=== PATIENT | female | born 1945 | race Caucasian/White ===

== ENCOUNTER → 2019-04-17 | Outpatient (CLI) | payer MEDICARE, OTHER ==
[~2019-04-17] MED LIST: Barium Sulfate w/v 2.1% Oral Susp 450 ML Bottle PO ONE; Iopamidol 612 MG/ML 75 ML Bottle IVPUSH ONE
[2019-04-17 15:33] LABS: ANION GAP 14.2; CHLORIDE,CL 100 mmol/L (101-111); SODIUM,NA 138 mmol/L (135-145)
== END ==
LOC: DL.CLIN 10:00
PROVIDERS: ATTEND Nurse Practitioner
DX: M25.551 Pain in right hip (principal); R10.31 Right lower quadrant pain
CPT/HCPCS: 36415; 80053; 85025; 99213; Q9967

== ENCOUNTER 2019-12-04 06:58 | Emergency (ER) | payer MEDICARE, OTHER ==
--- NOTE | 2019-12-04 07:34 | EDM.PDOC ---
<Rico Carmona - Last Filed: 12/04/19 07:38> ED HPI GENERAL MEDICAL PROBLEM - General Chief Complaint: Lower Extremity Injury/Pain Stated Complaint: AMBULANCE Time Seen by Provider: 12/04/19 07:38 Source of Information: Reports: Patient, Family, RN, RN Notes Reviewed History Limitations: Reports: No Limitations - History of Present Illness INITIAL COMMENTS - FREE TEXT/NARRATIVE: hip surgury on Monday, home on Monday, now having pain, states like the muscles have been overworked, but they haven' been, states above the right knee and to the side, right leg is worse than the left leg, was having 10/10 pain, given fentyl 50 mcg by EMS, now states no pain. She also had her left hip worked on the same day to strengthen the joint but she is not sure what surgical intervention was performed. There is substantial erythema surrounding the surgical site on the right hip and the area is warm to the touch. Onset: Today Duration: Hour(s): Location: Reports: Lower Extremity, Right (Right hip) Quality: Reports: Ache, Burning Severity: Moderate Improves with: Reports: Medication (Fentanyl relieved pain) Worsens with: Reports: Movement Associated Symptoms: Denies: Confusion, Chest Pain, Cough, Fever/Chills, Headaches, Nausea/Vomiting, Shortness of Breath, Syncope - Related Data Allergies Allergy/AdvReac Type Severity Reaction Status Date / Time No Known Allergies Allergy Verified 12/04/19 06:59 Home Meds: Home Meds FLUoxetine [PROzac] 40 mg PO BID 10/16/16 [History] Triamterene/Hydrochlorothiazid [Triamterene-HCTZ 37.5-25 MG] 1 tab PO DAILY [History] Celecoxib 400 mg PO DAILY 08/03/18 [History] Levothyroxine 25 mcg PO ACBREAKFAST 08/03/18 [History] Aspirin [Ecotrin EC] 325 mg PO ASDIRECTED PRN 05/06/19 [History] Albuterol [Proventil] 1 inh PO ASDIRECTED PRN 05/08/19 [History] Review of Systems - Review of Systems Review Of Systems: See Below Constitutional: Reports: No Symptoms Respiratory: Denies: Shortness of Breath, Wheezing, Cough, Sputum Cardiovascular: Denies: Chest Pain, Edema, Lightheadedness, Palpitations, Syncope GI/Abdominal: Denies: Abdominal Pain, Constipation, Decreased Appetite, Diarrhea , Nausea, Vomiting Genitourinary: Reports: No Symptoms Musculoskeletal: Reports: Leg Pain (bilateral hips, radiation to right lateral thigh), Joint Pain (bilateral hips), Muscle Stiffness (bilateral hips) Skin: Reports: Erythema (surrounding surgical site of right hip). Denies: Cyanosis, Jaundice, Diaphoresis, Dryness, Lesions Neurological: Denies: Confusion, Dizziness, Headache, Syncope Psychiatric: Denies: Confusion, Anxiety, Agitation ED EXAM, GENERAL - Physical Exam Exam: See Below Exam Limited By: No Limitations General Appearance: Alert, WD/WN, No Apparent Distress Respiratory/Chest: No Respiratory Distress, Lungs Clear, Normal Breath Sounds, No Accessory Muscle Use, Chest Non-Tender Cardiovascular: Normal Peripheral Pulses, Regular Rate, Rhythm, No Edema, No Gallop, No JVD, No Murmur, No Rub Peripheral Pulses: 2+: Femoral (L), Femoral (R), Posterior Tibial (L), Posterior Tibial (R), Dorsalis Pedis (L), Dorsalis Pedis (R) GI/Abdominal: Normal Bowel Sounds, Soft, Non-Tender, No Organomegaly, No Distention, No Abnormal Bruit, No Mass (Female) Exam: Deferred Rectal (Female) Exam: Deferred Back Exam: Normal Inspection, Full Range of Motion, NT Extremities: Leg Pain, Limited Range of Motion, Increased Warmth (surgical site of right hip), Redness (surgical site of right hip) Neurological: Alert, Oriented, CN II-XII Intact, Normal Cognition, Normal Gait, Normal Reflexes, No Motor/Sensory Deficits Psychiatric: Normal Affect, Normal Mood Skin Exam: Erythema (surgical site of right hip), Increased Warmth (surgical site of right hip). No: Diaphoretic, Ecchymosis, Jaundice Lymphatic: No Adenopathy Course - Vital Signs Last Recorded V/S: Last Vital Signs Temp 98 F 12/04/19 07:10 Pulse 77 12/04/19 07:10 Resp 16 12/04/19 07:10 BP 120/53 L 12/04/19 07:10 Pulse Ox 94 L 12/04/19 07:10 - Orders/Labs/Meds Labs: Laboratory Tests 02/05/20 02/05/20 02/05/20 Range/Units 07:40 07:40 07:40 WBC 9.5 (5.0-10.0) 10^3/uL RBC 3.02 L (4.2-5.4) 10^6/uL Hgb 9.4 L D (12.0-16.0) g/dL Hct 28.6 L (37.0-47.0) % MCV 94.7 (80-100) fL MCH 31.1 (27.0-34.0) pg MCHC 32.9 L (33.0-35.0) g/dL Plt Count 210 D (150-450) 10^3/uL Neut % (Auto) 68.4 (42.2-75.2) % Lymph % (Auto) 19.1 L (20.5-50.1) % [place] % (Auto) 8.5 H (2-8) % Eos % (Auto) 3.6 H (1.0-3.0) % Baso % (Auto) 0.4 (0.0-1.0) % Sodium 134 L (135-145) mmol/L Potassium 3.7 (3.6-5.0) mmol/L Chloride 99 L (101-111) mmol/L Carbon Dioxide 27.0 (21.0-31.0) mmol/L Anion Gap 11.7 BUN 18 (7-18) mg/dL Creatinine 0.7 (0.6-1.3) mg/dL Est Cr Clr Drug Dosing 55.31 mL/min Estimated GFR (MDRD) > 60 BUN/Creatinine Ratio 25.71 Glucose 91 (74-105) mg/dL Lactic Acid 0.6 (0.5-2.0) mmol/L Calcium 8.5 (8.4-10.2) mg/dl Total Bilirubin 0.5 (0.2-1.0) mg/dL AST 43 H (10-42) IU/L ALT 18 (10-60) IU/L Alkaline Phosphatase 53 (42-121) IU/L Total Protein 5.9 L (6.7-8.2) g/dl Albumin 3.1 L (3.2-5.5) g/dl Globulin 2.8 Albumin/Globulin Ratio 1.11 Departure - Departure Disposition: DC/Tfer to [facility] Clinical Impression: Postoperative pain of extremity - Discharge Information Forms: ED Department Discharge, Interfacility Transfer EMTALA Sepsis Event Note - Focused Exam Vital Signs: Vital Signs Temp Pulse Resp BP Pulse Ox 12/04/19 07:10 98 F 77 16 120/53 L 94 L Date Exam was Performed: 12/04/19 Time Exam was Performed: 07:38 <Coco Bartonian - Last Filed: 12/04/19 08:47> ED HPI GENERAL MEDICAL PROBLEM - History of Present Illness INITIAL COMMENTS - FREE TEXT/NARRATIVE: Pt arrives from home by ambulance on POD #2 s/p Rt THR and left hip stabilization surgery by Dr. Reddy at [facility] in . Pt states she came home by car yesterday and had pain and numbness in her legs and had difficulty getting into the house. Once in the house she went to bed and has been unable to get up from the bed. Denies fever, loss of bowel or bladder control, or bleeding from the surgical incisions. Past Medical History HEENT History: Reports: Impaired Vision, Other (See Below) Other HEENT History: UPPER DENTURE. chronic sinus problems Cardiovascular History: Reports: Hypertension, Other (See Below) Other Cardiovascular History: states high cholesterol in past. Stopped meds. Not sure if she still has or not. Respiratory History: Reports: None Gastrointestinal History: Reports: Chronic Constipation Genitourinary History: Reports: Urinary Incontinence [employer] History: Reports: , Other (See Below) Other [employer] History: 2 children, vaginal deliveries Musculoskeletal History: Reports: Back Pain, Chronic, Osteoarthritis, RA, Other (See Below) Other Musculoskeletal History: right shoulder fx with surgery. surgery to left knee. Neurological History: Reports: None Psychiatric History: Reports: Depression Endocrine/Metabolic History: Reports: Hypothyroidism, Osteoporosis, Other (See Below) Other Endocrine/Metabolic History: on thyroid med in past. "tested out borderline diabetes in past but never had" Hematologic History: Reports: None Immunologic History: Reports: None Oncologic (Cancer) History: Reports: None Dermatologic History: Reports: None - Infectious Disease History Infectious Disease History: Reports: Chicken Pox, Measles, Mumps - Past Surgical History Head Surgeries/Procedures: Reports: None HEENT Surgical History: Reports: LASIK, Oral Surgery Other HEENT Surgeries/Procedures: left eye only. Still needing to wear glasses. Cardiovascular Surgical History: Reports: None GI Surgical History: Reports: Appendectomy, Colonoscopy Female Surgical History: Reports: Tubal Ligation Endocrine Surgical History: Reports: None Musculoskeletal Surgical History: Reports: Hip Replacement, Shoulder Replacement , Other (See Below) Other Musculoskeletal Surgeries/Procedures:: LEFT TOTAL HIP REPLACEMENT, HARDWARE IN PLACE. TOTAL REVERSE REPLACEMENT RIGHT SHOULDER, HARDWARE IN PLACE Dermatological Surgical History: Reports: None Social & Family History - Family History Family Medical History: Noncontributory - Tobacco Use Smoking Status *Q: Never Smoker Second Hand Smoke Exposure: No - Caffeine Use Caffeine Use: Reports: Coffee Other Caffeine Use: TAKES VIVARIN PILLS OCCASIONALLY - Recreational Drug Use Recreational Drug Use: No - Living Situation & Occupation Living situation: Reports: , with Spouse Occupation: Retired Course - Orders/Labs/Meds Labs: Laboratory Tests 12/04/19 12/04/19 12/04/19 Range/Units 07:40 07:40 07:40 WBC 9.5 (5.0-10.0) 10^3/uL RBC 3.02 L (4.2-5.4) 10^6/uL Hgb 9.4 L D (12.0-16.0) g/dL Hct 28.6 L (37.0-47.0) % MCV 94.7 (80-100) fL MCH 31.1 (27.0-34.0) pg MCHC 32.9 L (33.0-35.0) g/dL Plt Count 210 D (150-450) 10^3/uL Neut % (Auto) 68.4 (42.2-75.2) % Lymph % (Auto) 19.1 L (20.5-50.1) % [place] % (Auto) 8.5 H (2-8) % Eos % (Auto) 3.6 H (1.0-3.0) % Baso % (Auto) 0.4 (0.0-1.0) % Sodium 134 L (135-145) mmol/L Potassium 3.7 (3.6-5.0) mmol/L Chloride 99 L (101-111) mmol/L Carbon Dioxide 27.0 (21.0-31.0) mmol/L Anion Gap 11.7 BUN 18 (7-18) mg/dL Creatinine 0.7 (0.6-1.3) mg/dL Est Cr Clr Drug Dosing 55.31 mL/min Estimated GFR (MDRD) > 60 BUN/Creatinine Ratio 25.71 Glucose 91 (74-105) mg/dL Lactic Acid 0.6 (0.5-2.0) mmol/L Calcium 8.5 (8.4-10.2) mg/dl Total Bilirubin 0.5 (0.2-1.0) mg/dL AST 43 H (10-42) IU/L ALT 18 (10-60) IU/L Alkaline Phosphatase 53 (42-121) IU/L Total Protein 5.9 L (6.7-8.2) g/dl Albumin 3.1 L (3.2-5.5) g/dl Globulin 2.8 Albumin/Globulin Ratio 1.11 - Radiology Interpretation Free Text/Narrative:: [facility] Final Radiology Report Call: [phone] assistance Online chat: [email or web address] Name: ORAL BOYLE Age: 74Years F Date: 12/04/2019 SSN: -- : 1945 Study: XR SPINE LUMBOSACRAL 2 OR 3 VIEWS Requesting Physician: COCO BARTON Images: 3 Addl Studies: Provided Clinical History: Contrast: Contrast Medium: Contrast Amount: Contrast Method: Page 1 of 2 PROCEDURE INFORMATION: Exam: XR Lumbosacral Spine, 2 or 3 Views Exam date and time: 12/04/2019 7:44 AM Age: 74 years old Clinical indication: Other: Bilat hip pain, leg weakness, RT total hip replacement 12/02/19, no new injury; Prior surgery; Surgery date: 3-7 days post-operative TECHNIQUE: Imaging protocol: XR of the lumbosacral spine, 2 or 3 views. COMPARISON: MR Lumbar Spine Comp wo Cont 04/11/2019 10:08 AM FINDINGS: Vertebrae: There is generalized osteopenia. The vertebral body heights are maintained. No fractures. There is hypertrophy and degeneration of the facet joints. Mild scoliotic curvature. Normal alignment, otherwise. There is moderate narrowing of the T12-L1 disc space. There is mild narrowing of the L4-L5 disc space. There is moderately severe narrowing of the L5-S1 disc space.There are associated marginal endplate osteophytes. Soft tissues: Unremarkable. IMPRESSION: 1. No fractures or dislocations. 2. Degenerative disc disease. 3. Facet joint arthropathy. Thank you for allowing us to participate in the care of your patient. Dictated and Authenticated by: Sheng Irby MD [facility] Final Radiology Report Call: [phone] assistance Online chat: [email or web address] Experience Name: ORAL BOYLE Age: 74Years F Date: 12/04/2019 SSN: -- : 1945 Study: XR HIP 2 VIEW INCL AP PELVIS BILAT Requesting Physician: COCO BARTON Images: 5 Addl Studies: Provided Clinical History: Contrast: Contrast Medium: Contrast Amount: Contrast Method: CONFIDENTIALITY STATEMENT This report is intended only for use by the referring physician, and only in accordance with law. If you received this in error, call [phone]. Page 1 of 1 PROCEDURE INFORMATION: Exam: XR Bilateral Hips with Pelvis when Performed Exam date and time: 12/04/2019 7:34 AM Age: 74 years old Clinical indication: Other: Bilat hip pain, leg weakness, RT total hip replacement 12/02/19; Prior surgery; Surgery date: 3-7 days post-operative; Surgery type: Total hip replacement (rt) TECHNIQUE: Imaging protocol: XR bilateral hips with pelvis when performed. Views: 2 views. COMPARISON: CR Hip Min 1V w Pelvis Lt 10/16/2016 12:36 PM FINDINGS: Bones/joints: Since the prior study a total hip arthroplasty has been placed. There is no evidence of loosening or infection of the hardware. There is also a new right hip arthroplasty with the prosthetic components in anatomic alignment. Soft tissues: There are skin clips over the right hip. IMPRESSION: Bilateral hip arthroplasties in anatomic alignment. Thank you for allowing us to participate in the care of your patient. Dictated and Authenticated by: Sheng Irby MD 12/04/2019 8:01 AM Central Time ([place] & [place]) - Re-Assessments/Exams Free Text/Narrative Re-Assessment/Exam: 12/04/19 08:30 I personally performed or re-performed the physical examination and medical decision making. I have verified all student documentation or findings, including history, physical exam and/or medical decision making. Free Text/Narrative Re-Assessment/Exam: 12/04/19 08:45 Plan to transfer the pt back to [facility] for evaluation and PT/OT or consideration of some form of rehab or transitional care. Departure - Departure Time of Disposition: 08:45 Condition: Fair - Discharge Information *PRESCRIPTION DRUG MONITORING PROGRAM REVIEWED*: Not Applicable *COPY OF PRESCRIPTION DRUG MONITORING REPORT IN PATIENT POLO: Not Applicable Sepsis Event Note - Evaluation Sepsis Screening Result: No Definite Risk - Focused Exam Date Exam was Performed: 12/04/19 Time Exam was Performed: 08:41
[2019-12-04 08:07] LABS: ANION GAP 11.7; CHLORIDE,CL 99 mmol/L (101-111); SODIUM,NA 134 mmol/L (135-145)
[2019-12-04 08:44] VITALS: BP 128/50; PULSE 80
== END 2019-12-04 09:21 ==
LOC: DL.ED 06:58
DX: G89.18 Other acute postprocedural pain (principal); M25.552 Pain in left hip; M25.551 Pain in right hip; M79.651 Pain in right thigh; Z79.82 Long term (current) use of aspirin
CPT/HCPCS: 36415; 72100; 80053; 83605; 85025; 99285-25

== ENCOUNTER 2020-04-14 05:29 | Day surgery (SDC) | payer MEDICARE, OTHER ==
[2020-04-14] MEDS ORDERED: Midazolam 1 MG/ML 2 ML SDV IV ONE ×3 (05:30→06:29)
[2020-04-14] MEDS ORDERED: fentaNYL 100 MCG/2 ML SDV IV ONE ×3 (05:30→06:27)
[2020-04-14] MEDS ORDERED: Dextrose 5%-0.45% NaCl 1,000 ML IV SCH (06:05)
[2020-04-14] MEDS ORDERED: fentaNYL 100 MCG/2 ML SDV ONE (06:09)
[2020-04-14] MEDS ORDERED: Midazolam 1 MG/ML 2 ML SDV ONE (06:09)
--- NOTE | 2020-04-14 08:41 | OR ---
DATE: 04/14/2020 PROCEDURE: Esophagogastroduodenoscopy, NBI, and multiple pinch biopsies. INSTRUMENT USED: GIF-HQ190 Olympus video panendoscope. PREMEDICATIONS: No oral or topical anesthesia used. Fentanyl 100 mcg intravenous, Versed 1.5 mg intravenous. Nasal O2 cannula. The procedure was done under pulse oximetry, BP recording, and vp emerging media. INDICATION: The patient with persistent nausea as well as dyspepsia, unexplained and not responsive to medical measures. Esophagogastroduodenoscopy is performed for detection of any active erosive lesions, Ordoñez esophagus and/or malignancy also under consideration, H. pylori status to be determined, small bowel biopsies to be obtained for celiac disease if indicated, endoscopic hemostasis therapy if needed. PROCEDURE IN DETAIL: The scope was passed with ease. Adequate visualization of the esophagus was made from proximal to distal areas. No upper esophageal lesions identified. No distal esophageal stricture. No uphill or downhill esophageal varices. No Lilian-Coy tear. No evidence of erosive esophagitis by Grimstead criteria. No esophageal polyp or tumor mass identified. Z-line was seen at around 39 cm distal to the oral verge, configuration consistent with grade 1 by ZAP classification. There was whitish pseudomembrane kind of exudate noted in the esophagus, NBI views were obtained, multiple pinch biopsies were obtained and sent for histopathology. [place] biopsy was taken and sent for fundus smear and culture. No proximal gastric varices noted. Gastric fundus examination by retroflexion showed no polypoid lesions. No gastric ulcer, malignant mass, or vascular ectasia identified. Scattered gastric antral erosions were noted without bleeding from them. Multiple pinch biopsies were taken from the gastric antrum and proximal body and sent for PyloriTek test for H. pylori and histopathology. Duodenal bulb showed no ulcer. Visualized 2nd part of the duodenum was unremarkable. Multiple pinch biopsies, 4 in number were taken from different areas of the 2nd part of the duodenum, and the tissues were also obtained from 9 and 4 o'clock positions of the duodenal bulb and sent for any histopathologic evidence of celiac disease. No bleeding was noted from any of the visualized areas at the completion of examination. Photographs were taken of the duodenal bulb, gastric antrum, fundus, and distal esophagus. IMPRESSION: Gastric antral erosions. The patient tolerated the procedure well. [facility] /[id number]
[2020-04-14 11:43] VITALS: PULSE 57
[2020-04-14 11:44] VITALS: BP 124/49
== END 2020-04-14 10:27 | disposition home or self-care (01) ==
LOC: DL.ENDO 05:29
PROVIDERS: ATTEND Internal Medicine Gastroenterology
DX: K29.80 Duodenitis without bleeding (principal); K25.9 Gastric ulcer, unspecified as acute or chronic, without hemorrhage or perforation; I10 Essential (primary) hypertension; E78.5 Hyperlipidemia, unspecified; E03.9 Hypothyroidism, unspecified; F32.9 Major depressive disorder, single episode, unspecified; M19.90 Unspecified osteoarthritis, unspecified site; Z90.49 Acquired absence of other specified parts of digestive tract; Z98.890 Other specified postprocedural states; Z98.51 Tubal ligation status
CPT/HCPCS: 43239; 87077; 87102; 87205; J2250; J3010; J7042; 87107; 88305

== ENCOUNTER 2020-04-28 05:29 | Day surgery (SDC) | payer MEDICARE, OTHER ==
[2020-04-28] MEDS ORDERED: fentaNYL 100 MCG/2 ML SDV IV ONE ×3 (05:30→06:34)
[2020-04-28] MEDS ORDERED: Midazolam 1 MG/ML 2 ML SDV IV ONE ×7 (05:30→06:49)
[2020-04-28] MEDS ORDERED: Dextrose 5%-0.45% NaCl 1,000 ML IV SCH (06:00)
[2020-04-28] MEDS ORDERED: Midazolam 1 MG/ML 2 ML SDV ONE (06:12)
[2020-04-28] MEDS ORDERED: fentaNYL 100 MCG/2 ML SDV ONE (06:12)
[2020-04-28 09:14] VITALS: PULSE 63
[2020-04-28 09:17] VITALS: BP 123/66
--- NOTE | 2020-04-28 12:19 | OR ---
DATE: 04/28/2020 PROCEDURE: Total colonoscopy. INSTRUMENT USED: PCF-H190DL Olympus video colonoscope. PREMEDICATIONS: Fentanyl 100 mcg intravenous, Versed 4 mg intravenous, nasal O2 cannula. The procedure was done under pulse oximetry, BP recording, and conveyor monitor. INDICATION: The patient with progressive constipation, unexplained, and not responsive to medical measures. Colonoscopic examination is done for detection of any polypoid lesions and removal, endoscopic hemostasis therapy if needed. DESCRIPTION OF PROCEDURE: Initial rectal exam was unremarkable. Rigid anoscopy was normal. The colonoscope was passed with ease. Scattered diverticula were noted in the distal left colon along with deformity. Diffuse pigmentation was noted, consistent with melanosis coli. The scope was passed with ease up to the ileocecal area. Photographs were taken of the normal-appearing cecum, identified by double-bulged ileocecal folds. There was some amount of solid material that had to be aspirated. No bleeding was noted from any of the visualized areas at the commencement of the examination. No stricture. No vascular ectasia. No large isolated ulcerations seen. No evidence of diffuse inflammatory bowel disease in the form of friability, contact bleeding, or ulcerations. No polyp or tumor mass identified. Probing the proximal sides of folds and flexures using adequate distention and clearing up the stool material, withdrawal of the scope was made, cecum to rectum time over 6 minutes. Bowel preparation was one of [place] scale 2 in all the regions, total score 6. No bleeding was noted from any of the visualized areas at the completion of examination. IMPRESSION: 1. Melanosis coli. 2. Diverticulosis. The patient tolerated the procedure well. [facility] /[id number]
== END 2020-04-28 09:05 | disposition home or self-care (01) ==
LOC: DL.ENDO 05:29
PROVIDERS: ATTEND Internal Medicine Gastroenterology
DX: K63.89 Other specified diseases of intestine (principal); K57.30 Diverticulosis of large intestine without perforation or abscess without bleeding; K25.9 Gastric ulcer, unspecified as acute or chronic, without hemorrhage or perforation; F32.9 Major depressive disorder, single episode, unspecified; I10 Essential (primary) hypertension; E03.9 Hypothyroidism, unspecified; M19.90 Unspecified osteoarthritis, unspecified site
CPT/HCPCS: 45378; J2250; J3010; J7042; G0121

== ENCOUNTER 2020-12-16 09:40 | Day surgery (SDC) | payer MEDICARE, OTHER ==
[2020-12-16] MEDS ORDERED: Sodium Chloride 0.9% 10 ML Syringe IV ONE (09:41)
[2020-12-16] MEDS ORDERED: Midazolam 1 MG/ML 2 ML SDV IV ONE (09:41)
[2020-12-16] MEDS ORDERED: Dexamethasone 4 MG/ML SDV IV ONE (09:41)
[2020-12-16] MEDS ORDERED: Phenylephrine 10% Ophth Soln 5 ML Bot EYELF PRN (09:45)
[2020-12-16] MEDS ORDERED: Timolol Maleate 0.5% Ophth Soln 5 ML Bottle EYELF ONE (09:45)
[2020-12-16] MEDS ORDERED: Cataract Ophth Solution EYELF ONE (09:45)
[2020-12-16] MEDS ORDERED: Moxifloxacin 0.5% Ophth Soln 3 ML Bottle EYELF ONE (09:45)
[2020-12-16] MEDS ORDERED: Povidone-Iodine 5% Sterile Ophth Soln 30 ML Bottle EYELF ONE ×2 (09:45→10:38)
[2020-12-16] MEDS ORDERED: Ondansetron 4 MG/2 ML SDV IVPUSH PRN (09:45)
[2020-12-16] MEDS ORDERED: Phenylephrine 10% Ophth Soln 5 ML Bot EYELF ONE (09:45)
[2020-12-16] MEDS ORDERED: Proparacaine 0.5% Ophth Soln 15 ML Bottle EYELF ONE (09:45)
[2020-12-16] MEDS ORDERED: Tropicamide 1% Ophth Soln 15 ML Bottle EYELF ONE (09:45)
[2020-12-16] MEDS ORDERED: Sodium Chloride 0.9% 10 ML Syringe FLUSH PRN (09:45)
[2020-12-16] MEDS ORDERED: Acetaminophen 325 MG Tab PO PRN (09:45)
[2020-12-16 10:02] VITALS: BP 149/71; PULSE 75
[2020-12-16] MEDS ORDERED: Lidocaine 1% 30 ML SDV ONE (10:37)
[2020-12-16] MEDS ORDERED: Apraclonidine 0.5% Ophth Soln 5 ML Bot EYELF ONE (10:38)
[2020-12-16] MEDS ORDERED: Tetracaine HCl/PF 0.5% 4 ML Bottle EYELF ONE (10:38)
[2020-12-16] MEDS ORDERED: Diclofenac Sodium 0.1% Ophth Soln 5 ML Bottle EYELF ONE (10:38)
[2020-12-16] MEDS ORDERED: Dexamethasone/Neomycin/Polymyxin B Ophth Oint 3.5 GM Tube EYELF ONE (10:39)
[2020-12-16] MEDS ORDERED: Chondroitin Sulfate/Hyaluronate Sodium Ophth Inj 0.75 ML Syringe EYELF ONE (10:39)
[2020-12-16] MEDS ORDERED: Balanced Salt Solution Ophth Irrig 500 ML Bottle IOCULAR ONE (10:39)
[2020-12-16] MEDS ORDERED: Vancomycin 500 MG SDV EYELF ONE (10:39)
--- NOTE | 2020-12-16 13:04 | OR ---
DATE: 12/16/2020 PREOPERATIVE DIAGNOSIS: Visually significant mixed cataract, left eye. POSTOPERATIVE DIAGNOSIS: Visually significant mixed cataract, left eye. PROCEDURE: Extracapsular cataract extraction with intraocular lens implant, left eye. ANESTHESIA: Topical/local MAC. COMPLICATIONS: None. INDICATION: Ms. Vogel was seen in the clinic with complaints of blurred vision. The examination revealed visually significant mixed cataract. She is unhappy with her vision. She saw her regular saw offbearer, Dr. Lafleur. Dr. Lafleur was not able to improve her vision with change in glasses. She complains of blurred vision at all ranges, difficulty seeing at distance, difficulty seeing fine print. She does have a history of LASIK, but functions for the most part with glasses. I explained options and offered cataract surgery. Explained risks including the potential for infection, retinal detachment, loss of vision, need for additional surgery, and risks associated with anesthesia. We discussed implant options. She has requested a monofocal implant. She understands that she may need glasses following surgery. I also explained the reduced refractive predictability given her history of LASIK. OPERATIVE DESCRIPTION: After informed consent was obtained and the risks, benefits, and alternatives were explained, the patient was brought to the operative suite and topical anesthesia was administered. The patient was then prepped and draped in the sterile fashion and attention was placed on the left eye. A sterile lid speculum was placed into the left eye to allow operative exposure. A full-thickness paracentesis was made in the temporal portion of the operative eye. Preservative-free lidocaine 0.1 mL was injected into the anterior chamber followed by viscoelastic. A full-thickness corneal incision was then made into the anterior chamber. A bent needle cystotome was used to create a small ambika in the anterior capsule. The capsulorrhexis forceps was then used to create a 360-degree curvilinear capsulorrhexis. The nucleus was then removed using a phacoemulsification handpiece and the remaining cortical material was then removed with irrigation and aspiration handpiece. Following removal of the cortical material, the capsular bag was then inspected and noted to be free of any holes or tears. Viscoelastic was then injected into the capsular bag and the intraocular lens was inserted into the capsular bag. The viscoelastic material was then removed from both the anterior and posterior chambers and from behind the IOL. The lens and capsular bag were then reinspected. The IOL was well centered and the capsular bag intact. The wound and paracentesis sites were inspected and hydrated with balanced saline solution. Both were found to be self- sealing. The intraocular pressure was assessed digitally and found to be within normal range. A good red reflex was noted at the completion of the procedure. No complications occurred during the operation. At the completion of the procedure, Maxitrol, Voltaren, and Iopidine drops were placed into the operative eye. A sterile eye shield was placed over the operative eye and the patient was transported to the postoperative recovery area having tolerated the procedure well. Postoperative instructions were given along with a postoperative appointment. The patient was advised to call with any questions or concerns. [facility] /[id number]
== END 2020-12-16 11:47 | disposition home or self-care (01) ==
LOC: DL.SDS 09:40
PROVIDERS: ATTEND Ophthalmology
DX: H26.8 Other specified cataract (principal); E78.5 Hyperlipidemia, unspecified; E03.9 Hypothyroidism, unspecified; I10 Essential (primary) hypertension; J45.909 Unspecified asthma, uncomplicated; Z87.891 Personal history of nicotine dependence; Z98.890 Other specified postprocedural states; Z79.899 Other long term (current) drug therapy; Z88.8 Allergy status to other drugs, medicaments and biological substances; Z79.890 Hormone replacement therapy
CPT/HCPCS: 00142; 66984; A9270; J1100; J2250; J3370; V2632

== ENCOUNTER 2020-12-23 09:51 | Day surgery (SDC) | payer MEDICARE, OTHER ==
[~2020-12-23 09:51] MED LIST changes: +Acetaminophen 325 MG Tab PO PRN; -Barium Sulfate w/v 2.1% Oral Susp 450 ML Bottle PO ONE; +Cataract Ophth Solution EYERT ONE; -Iopamidol 612 MG/ML 75 ML Bottle IVPUSH ONE; +Moxifloxacin 0.5% Ophth Soln 3 ML Bottle EYERT ONE; +Ondansetron 4 MG/2 ML SDV IVPUSH PRN; +Phenylephrine 10% Ophth Soln 5 ML Bot EYERT ONE; +Phenylephrine 10% Ophth Soln 5 ML Bot EYERT PRN; +Povidone-Iodine 5% Sterile Ophth Soln 30 ML Bottle EYERT ONE; +Proparacaine 0.5% Ophth Soln 15 ML Bottle EYERT ONE; +Timolol Maleate 0.5% Ophth Soln 5 ML Bottle EYERT ONE; +Tropicamide 1% Ophth Soln 15 ML Bottle EYERT ONE
[2020-12-23] MEDS ORDERED: Midazolam 1 MG/ML 2 ML SDV IV ONE (09:52)
[2020-12-23] MEDS ORDERED: Dexamethasone 4 MG/ML SDV IV ONE (09:52)
[2020-12-23] MEDS ORDERED: Sodium Chloride 0.9% 10 ML Syringe IV ONE (09:52)
[2020-12-23] MEDS ORDERED: Tetracaine HCl/PF 0.5% 4 ML Bottle EYERT ONE (10:44)
[2020-12-23] MEDS ORDERED: Povidone-Iodine 5% Sterile Ophth Soln 30 ML Bottle EYERT ONE (10:45)
[2020-12-23] MEDS ORDERED: Diclofenac Sodium 0.1% Ophth Soln 5 ML Bottle EYERT ONE (10:46)
[2020-12-23] MEDS ORDERED: Dexamethasone/Neomycin/Polymyxin B Ophth Oint 3.5 GM Tube EYERT ONE (10:46)
[2020-12-23] MEDS ORDERED: Apraclonidine 0.5% Ophth Soln 5 ML Bot EYERT ONE (10:46)
[2020-12-23] MEDS ORDERED: Lidocaine 1% 30 ML SDV ONE (10:47)
[2020-12-23] MEDS ORDERED: Balanced Salt Solution Ophth Irrig 500 ML Bottle IOCULAR ONE (10:47)
[2020-12-23] MEDS ORDERED: Vancomycin 500 MG SDV ONE (10:47)
[2020-12-23] MEDS ORDERED: Chondroitin Sulfate/Hyaluronate Sodium Ophth Inj 0.75 ML Syringe EYERT ONE (10:48)
--- NOTE | 2020-12-23 13:03 | OR ---
DATE: 12/23/2020 PREOPERATIVE DIAGNOSIS: Visually significant mixed cataract, right eye. POSTOPERATIVE DIAGNOSIS: Visually significant mixed cataract, right eye. PROCEDURE: Extracapsular cataract extraction with intraocular lens implant, right eye. ANESTHESIA: Topical/local MAC. COMPLICATIONS: None. INDICATION: Mrs. Vogel was seen in the clinic. Examination revealed visually significant mixed cataract. She is symptomatic with a slow progressive change in vision over the last year. She saw her regular provider, Dr. Lafleur. Dr. Lafleur was not able to meet her visual needs with the change in glasses. I explained options and offered cataract surgery. I explained risks including, but not limited to infection, retinal detachment, loss of vision, need for additional surgery, and risks associated with anesthesia. We discussed implant options. She has requested a monofocal implant. She does have a history of LASIK and I explained the refractive predictability has decreased following that procedure. She understands that she may be dependent on glasses following surgery for some activities. She voiced understanding with respect to risks, limitations, and wished to proceed. OPERATIVE DESCRIPTION: After informed consent was obtained and the risks, benefits, and alternatives were explained, the patient was brought to the operative suite and topical anesthesia was administered. The patient was then prepped and draped in the sterile fashion and attention was placed on the right eye. A sterile lid speculum was placed into the right eye to allow operative exposure. A full-thickness paracentesis was made in the temporal portion of the operative eye. Preservative-free lidocaine 0.1 mL was injected into the anterior chamber followed by viscoelastic. A full-thickness corneal incision was then made into the anterior chamber. A bent needle cystotome was used to create a small ambika in the anterior capsule. The capsulorrhexis forceps was then used to create a 360-degree curvilinear capsulorrhexis. The nucleus was then removed using a phacoemulsification handpiece and the remaining cortical material was then removed with irrigation and aspiration handpiece. Following removal of the cortical material, the capsular bag was then inspected and noted to be free of any holes or tears. Viscoelastic was then injected into the capsular bag and the intraocular lens was inserted into the capsular bag. The viscoelastic material was then removed from both the anterior and posterior chambers and from behind the IOL. The lens and capsular bag were then reinspected. The IOL was well centered and the capsular bag intact. The wound and paracentesis sites were inspected and hydrated with balanced saline solution. Both were found to be self- sealing. The intraocular pressure was assessed digitally and found to be within normal range. A good red reflex was noted at the completion of the procedure. No complications occurred during the operation. At the completion of the procedure, Maxitrol, Voltaren, and Iopidine drops were placed into the operative eye. A sterile eye shield was placed over the operative eye and the patient was transported to the postoperative recovery area having tolerated the procedure well. Postoperative instructions were given along with a postoperative appointment. The patient was advised to call with any questions or concerns. [facility] /[id number]
[2020-12-24 07:54] VITALS: BP 132/62; PULSE 69
== END 2020-12-23 11:24 | disposition home or self-care (01) ==
LOC: DL.SDS 09:51
PROVIDERS: ATTEND Ophthalmology
DX: H26.8 Other specified cataract (principal); J45.909 Unspecified asthma, uncomplicated; J32.9 Chronic sinusitis, unspecified; E78.5 Hyperlipidemia, unspecified; I10 Essential (primary) hypertension; E03.9 Hypothyroidism, unspecified; M19.91 Primary osteoarthritis, unspecified site; Z88.8 Allergy status to other drugs, medicaments and biological substances; Z87.891 Personal history of nicotine dependence; Z98.890 Other specified postprocedural states; Z79.890 Hormone replacement therapy; Z79.899 Other long term (current) drug therapy
CPT/HCPCS: 66984; A9270; J1100; J2250; J3370; V2632; 00142

== ENCOUNTER 2022-10-10 11:07 | Emergency (ER) | payer MEDICARE, OTHER ==
[2022-10-10] MEDS ORDERED: Propofol 200 MG/20 ML SDV IV ONE (11:08)
[2022-10-10] MEDS ORDERED: fentaNYL 100 MCG/2 ML SDV IV ONE (11:08)
[2022-10-10 11:16] VITALS: BP 97/58; PULSE 74
[2022-10-10] MEDS ORDERED: fentaNYL 100 MCG/2 ML SDV ONE (13:23)
== END 2022-10-10 15:07 | disposition home or self-care (01) ==
LOC: DL.ED 11:07
DX: T84.021A Dislocation of internal left hip prosthesis, initial encounter (principal); E78.00 Pure hypercholesterolemia, unspecified; I10 Essential (primary) hypertension; E78.5 Hyperlipidemia, unspecified; Z88.8 Allergy status to other drugs, medicaments and biological substances; Z79.899 Other long term (current) drug therapy
CPT/HCPCS: 27265; 73501; 73502; 99152; 99153; 99283; J2704; J3010

== ENCOUNTER 2022-12-31 10:34 | Emergency (ER) | payer MEDICARE, OTHER ==
[2022-12-31 11:48] VITALS: BP 154/140; PULSE 91
== END 2022-12-31 12:38 | disposition home or self-care (01) ==
LOC: DL.ED 10:34
DX: H10.023 Other mucopurulent conjunctivitis, bilateral (principal); I10 Essential (primary) hypertension; J45.909 Unspecified asthma, uncomplicated; E03.9 Hypothyroidism, unspecified; Z88.8 Allergy status to other drugs, medicaments and biological substances; Z79.899 Other long term (current) drug therapy
CPT/HCPCS: 99283

== ENCOUNTER 2023-08-17 11:35 | Emergency (ER) | payer MEDICARE, OTHER ==
[2023-08-17] MEDS ORDERED: Sodium Chloride 0.9% 10 ML Syringe FLUSH PRN (11:41)
[2023-08-17 11:52] LABS: BASOPHILS PERCENT AUTO 0.4 % (0.0-1.0); HEMATOCRIT 39.9 % (37.0-47.0); HEMOGLOBIN 13.3 g/dL (12.0-16.0); LYMPHOCYTES PERCENT AUTO 32.7 % (20.5-50.1); MEAN CORPUSCULAR HEMOGLOBIN 28.1 pg (27.0-34.0); MEAN CORPUSCULAR HGB CONC 33.3 g/dL (33.0-35.0); MEAN CORPUSCULAR VOLUME 84.2 fL (80-100); MONOCYTES PERCENT AUTO 7.1 % (2-8); NEUTROPHILS PERCENT AUTO 57.8 % (42.2-75.2); PLATELET COUNT,PLT 299 10^3/uL (150-450); RED BLOOD CELL COUNT 4.74 10^6/uL (4.2-5.4); WHITE BLOOD CELL COUNT,WBC 7.9 10^3/uL (5.0-10.0)
[2023-08-17] MEDS ORDERED: Sodium Chloride 0.9% 500 ML IV SCH (12:00)
[2023-08-17 12:14] LABS: ALBUMIN 4.4 g/dL (3.4-5.0); ANION GAP 21.3 mEq/L (7-13); BILIRUBIN TOTAL 0.6 mg/dL (0.2-1.0); CALCIUM 9.6 mg/dL (8.5-10.1); CREATININE 2.39 mg/dL (0.55-1.02); EST CRCL DRUG DOSING (CG) 14.34 mL/min; POTASSIUM,K 4.3 mmol/L (3.5-5.1); PROTEIN TOTAL,TP 8.6 g/dL (6.4-8.2)
[2023-08-17 14:10] LABS: BILIRUBIN,URINE NEGATIVE (NEGATIVE); COLOR,URINE YELLOW (YELLOW); GLUCOSE,URINE NEGATIVE (NEGATIVE); KETONES,URINE 15 (NEGATIVE); LEUKOCYTE ESTERASE,URINE SMALL (NEGATIVE); NITRITE,URINE POSITIVE (NEGATIVE); OCCULT BLOOD,URINE TRACE-INTACT (NEGATIVE); PH,URINE 5.5 (5.0-9.0); PROTEIN,URINE NEGATIVE (NEGATIVE); UROBILINOGEN,URINE 0.2 mg/dL (0.2-1.0)
[2023-08-17 14:18] LABS: APPEARANCE,URINE SLIGHTLY CLOUDY (CLEAR)
[2023-08-17 14:20] LABS: BACTERIA,URINE MANY /HPF (0-FEW/HPF); EPITHELIAL CELLS,URINE FEW /HPF (NOT SEEN); RBC,URINE 0-5 /HPF (0-5); WBC,URINE 20-30 /HPF (0-5/HPF)
[2023-08-17] MEDS ORDERED: cefTRIAXone 1 GM Vial IVPUSH ONE (14:29)
[2023-08-17] MEDS ORDERED: Sodium Chloride 0.9% 1,000 ML IV SCH (15:00)
[2023-08-17 16:22] VITALS: BP 98/58; PULSE 87
== END 2023-08-17 17:47 ==
LOC: DL.ED 11:35
DX: N17.9 Acute kidney failure, unspecified (principal); N30.00 Acute cystitis without hematuria; R79.89 Other specified abnormal findings of blood chemistry; E78.00 Pure hypercholesterolemia, unspecified; K21.9 Gastro-esophageal reflux disease without esophagitis; J45.909 Unspecified asthma, uncomplicated; E03.9 Hypothyroidism, unspecified; Z79.899 Other long term (current) drug therapy; Z88.8 Allergy status to other drugs, medicaments and biological substances
CPT/HCPCS: 36415; 74176; 76705; 80053; 81001; 85025; 87086; 87088; 87186; 96361; 96374; 99285; J0696; J7040; J3490

== ENCOUNTER 2023-08-25 11:04 | Emergency (ER) | payer MEDICARE, OTHER ==
[2023-08-25 11:27] VITALS: BP 111/82; PULSE 99
[2023-08-25] MEDS ORDERED: Lactulose Soln 10 GM/15 ML 30 ML UD Cup PO ONE (11:55)
== END 2023-08-25 12:07 | disposition home or self-care (01) ==
LOC: DL.ED 11:04
DX: K59.00 Constipation, unspecified (principal); E78.5 Hyperlipidemia, unspecified; E03.9 Hypothyroidism, unspecified; I10 Essential (primary) hypertension; Z88.8 Allergy status to other drugs, medicaments and biological substances; Z79.899 Other long term (current) drug therapy
CPT/HCPCS: 74018; 99283; 99284; A9270-GY

== ENCOUNTER 2024-08-27 14:29 | Emergency (ER) | payer SELFPAY ==
[~2024-08-27 14:29] MED LIST changes: -Acetaminophen 325 MG Tab PO PRN; -Cataract Ophth Solution EYERT ONE; -Moxifloxacin 0.5% Ophth Soln 3 ML Bottle EYERT ONE; -Ondansetron 4 MG/2 ML SDV IVPUSH PRN; -Phenylephrine 10% Ophth Soln 5 ML Bot EYERT ONE; -Phenylephrine 10% Ophth Soln 5 ML Bot EYERT PRN; -Povidone-Iodine 5% Sterile Ophth Soln 30 ML Bottle EYERT ONE; -Proparacaine 0.5% Ophth Soln 15 ML Bottle EYERT ONE; +Sodium Chloride 0.9% 10 ML Syringe FLUSH PRN; -Timolol Maleate 0.5% Ophth Soln 5 ML Bottle EYERT ONE; -Tropicamide 1% Ophth Soln 15 ML Bottle EYERT ONE
[2024-08-27 14:32] LABS: BASOPHILS PERCENT AUTO 0.1 % (0.0-1.0); EOSINOPHILS PERCENT AUTO 0.1 % (1.0-3.0); LYMPHOCYTES PERCENT AUTO 12.2 % (20.5-50.1); MEAN CORPUSCULAR HEMOGLOBIN 27.8 pg (27.0-34.0); MEAN CORPUSCULAR HGB CONC 32.4 g/dL (33.0-35.0); MEAN CORPUSCULAR VOLUME 86.1 fL (80-100); MONOCYTES PERCENT AUTO 4.6 % (2-8); PLATELET COUNT,PLT 187 10^3/uL (150-450); RED BLOOD CELL COUNT 3.95 10^6/uL (4.2-5.4); WHITE BLOOD CELL COUNT,WBC 8.5 10^3/uL (5.0-10.0)
[2024-08-27] MEDS: HYDROmorphone 0.5 MG/0.5 ML Syringe IVPUSH ONE (14:34)
[2024-08-27] MEDS: Ondansetron 4 MG/2 ML SDV IVPUSH ONE (14:35)
[2024-08-27 14:47] LABS: INR 1.2 (0.9-1.2); PROTHROMBIN TIME 11.9 SEC (9.0-12.0)
[2024-08-27 14:51] LABS: A/G RATIO 0.92; ALBUMIN 3.3 g/dL (3.4-5.0); ANION GAP 14.2 mEq/L (7-13); BILIRUBIN TOTAL 1.2 mg/dL (0.2-1.0); BUN/CREATININE RATIO 13.3 (No establ ref range); C-REACTIVE PROTEIN 2.31 ng/dL (<=0.50); CALCIUM 9.5 mg/dL (8.5-10.1); CREATININE 0.9 mg/dL (0.55-1.02); EST CRCL DRUG DOSING (CG) 38.87 mL/min; MAGNESIUM 1.4 mg/dL (1.8-2.4); POTASSIUM,K 3.2 mmol/L (3.5-5.1); PROTEIN TOTAL,TP 6.9 g/dL (6.4-8.2)
[2024-08-27 14:55] LABS: LACTIC ACID 1.6 mmol/L (0.4-2.0)
[2024-08-27] MEDS: Iopamidol 612 MG/ML 100 ML Bottle IVPUSH ONE (14:58)
[2024-08-27] MEDS: Sodium Chloride 0.9% 1,000 ML IV SCH (15:11)
[2024-08-27] MEDS: Potassium Chloride 20 MEQ in Premix Bag 1 BAG IV ONE (15:11)
[2024-08-27] MEDS: Magnesium Sulfate/Water Premix 2 GM in Premix Bag 1 BAG IV ONE (15:12)
[2024-08-27 15:57] VITALS: BP 136/70; PULSE 77
== END 2024-08-27 17:45 ==
LOC: EDSEX → MERGE 14:29 → DL.ED 14:29
DX: I85.10 Secondary esophageal varices without bleeding (principal); R18.8 Other ascites; E83.42 Hypomagnesemia; E87.6 Hypokalemia
CPT/HCPCS: 36415; 74177; 80053; 82272; 83605; 83735; 85025; 85610; 86140; 96365; 96366; 96368; 96375; 99285; 99285-25; J1171; J2405; J3475; J3480; J7030; Q9967

== ENCOUNTER 2024-09-07 19:27 | Observation (INO) | payer MEDICARE, OTHER ==
[2024-09-07] MEDS ORDERED: Sodium Chloride 0.9% 10 ML Syringe FLUSH PRN (20:15)
[2024-09-07 20:55] LABS: BASOPHILS PERCENT AUTO 0.6 % (0.0-1.0); EOSINOPHILS PERCENT AUTO 0.6 % (1.0-3.0); HEMATOCRIT 34.6 % (37.0-47.0); HEMOGLOBIN 11.6 g/dL (12.0-16.0); LYMPHOCYTES PERCENT AUTO 18.2 % (20.5-50.1); MEAN CORPUSCULAR HEMOGLOBIN 28.3 pg (27.0-34.0); MEAN CORPUSCULAR HGB CONC 33.5 g/dL (33.0-35.0); MEAN CORPUSCULAR VOLUME 84.4 fL (80-100); MONOCYTES PERCENT AUTO 7.2 % (2-8); NEUTROPHILS PERCENT AUTO 73.4 % (42.2-75.2); PLATELET COUNT,PLT 219 10^3/uL (150-450); WHITE BLOOD CELL COUNT,WBC 7.1 10^3/uL (5.0-10.0)
[2024-09-07 21:08] LABS: APPEARANCE,URINE SLIGHTLY CLOUDY (CLEAR); BILIRUBIN,URINE NEGATIVE (NEGATIVE); COLOR,URINE YELLOW (YELLOW); GLUCOSE,URINE NEGATIVE (NEGATIVE); KETONES,URINE 15 (NEGATIVE); LEUKOCYTE ESTERASE,URINE NEGATIVE (NEGATIVE); NITRITE,URINE POSITIVE (NEGATIVE); OCCULT BLOOD,URINE TRACE-INTACT (NEGATIVE); PH,URINE 6.5 (5.0-9.0); PROTEIN,URINE 30 (NEGATIVE)
[2024-09-07 21:15] LABS: INR 1.2 (0.9-1.2); PROTHROMBIN TIME 12.3 SEC (9.0-12.0); PTT,PARTIAL THROMBOPLSTIN TIME 26.3 SEC (22.0-34.0)
[2024-09-07 21:27] LABS: ALBUMIN 3.7 g/dL (3.4-5.0); ANION GAP 18.6 mEq/L (7-13); BILIRUBIN TOTAL 1.1 mg/dL (0.2-1.0); BUN/CREATININE RATIO 18.1 (No establ ref range); CALCIUM 9.7 mg/dL (8.5-10.1); CREATININE 1.05 mg/dL (0.55-1.02); EST CRCL DRUG DOSING (CG) 33.32 mL/min; MAGNESIUM 1.4 mg/dL (1.8-2.4); POTASSIUM,K 2.6 mmol/L (3.5-5.1); PROTEIN TOTAL,TP 7.5 g/dL (6.4-8.2); TSH ULTRASENSITIVE 10.52 uIU/mL (0.36-3.74)
[2024-09-07 21:37] LABS: BACTERIA,URINE MANY /HPF (0-FEW/HPF); EPITHELIAL CELLS,URINE FEW /HPF (NOT SEEN); RBC,URINE 0-5 /HPF (0-5); WBC,URINE 0-5 /HPF (0-5/HPF)
[2024-09-07] MEDS: Magnesium Sulfate/Water Premix 2 GM in Premix Bag 1 BAG IV ONE (21:41)
[2024-09-07] MEDS: Potassium Chloride 10 MEQ Tab.ER PO ONE (21:42)
[2024-09-07] MEDS: Ondansetron 4 MG/2 ML SDV IVPUSH ONE (22:00)
[2024-09-07] MEDS: Melatonin 3 MG Tab PO PRN (22:00)
[2024-09-07] MEDS: Ciprofloxacin 500 MG Tab PO ONE (22:00)
[2024-09-08] MEDS ORDERED: hydrALAZINE 20 MG/ML SDV IVPUSH PRN (00:08)
[2024-09-08] MEDS: Ondansetron 4 MG/2 ML SDV IVPUSH PRN (00:55)
[2024-09-08] MEDS: Sodium Chloride 0.9% 1,000 ML IV SCH (00:59)
[2024-09-08] MEDS: diphenhydrAMINE 25 MG Tab PO ONE (02:47)
[2024-09-08] MEDS ORDERED: Potassium Chloride 10 MEQ Tab.ER PO ONE (11:02)
[2024-09-08 11:22] VITALS: BP 151/75; PULSE 77
[2024-09-08 11:36] LABS: ANION GAP 15.7 mEq/L (7-13); CALCIUM 9.1 mg/dL (8.5-10.1); CREATININE 0.93 mg/dL (0.55-1.02); EST CRCL DRUG DOSING (CG) 35.41 mL/min; POTASSIUM,K 3.7 mmol/L (3.5-5.1)
[2024-09-08] MEDS ORDERED: Ciprofloxacin 500 MG Tab ONE (11:52)
[2024-09-08] MEDS ORDERED: Ciprofloxacin 500 MG Tab PO ONE (12:24)
== END 2024-09-08 12:25 | disposition home or self-care (01) ==
LOC: DL.ED 19:27 → DL.MS 22:14
PROVIDERS: ADMIT Internal Medicine; ATTEND Internal Medicine
DX: N30.01 Acute cystitis with hematuria (principal); E87.6 Hypokalemia; E83.42 Hypomagnesemia; I10 Essential (primary) hypertension; E03.9 Hypothyroidism, unspecified; E78.2 Mixed hyperlipidemia; J45.909 Unspecified asthma, uncomplicated; F32.A Depression, unspecified; K21.9 Gastro-esophageal reflux disease without esophagitis; Z79.890 Hormone replacement therapy; Z79.899 Other long term (current) drug therapy
CPT/HCPCS: 36415; 80048; 80053; 81001; 82140; 83605; 83690; 83735; 84443; 85025; 85610; 85730; 87086; 96365; 96375; 96376; 99222; 99239; 99285; A9270; G0378; J2405; J3475; J7030; 87088; 87186

== ENCOUNTER 2024-09-11 11:19 | Observation (INO) | payer MEDICARE, OTHER ==
[2024-09-11] MEDS ORDERED: Sodium Chloride 0.9% 10 ML Syringe FLUSH PRN (11:35)
[2024-09-11 11:52] LABS: BASOPHILS PERCENT AUTO 0.5 % (0.0-1.0); HEMATOCRIT 31.9 % (37.0-47.0); HEMOGLOBIN 10.6 g/dL (12.0-16.0); LYMPHOCYTES PERCENT AUTO 19.8 % (20.5-50.1); MEAN CORPUSCULAR HEMOGLOBIN 28.8 pg (27.0-34.0); MEAN CORPUSCULAR HGB CONC 33.2 g/dL (33.0-35.0); MEAN CORPUSCULAR VOLUME 86.7 fL (80-100); MONOCYTES PERCENT AUTO 7.1 % (2-8); NEUTROPHILS PERCENT AUTO 71.6 % (42.2-75.2); PLATELET COUNT,PLT 194 10^3/uL (150-450); RED BLOOD CELL COUNT 3.68 10^6/uL (4.2-5.4); WHITE BLOOD CELL COUNT,WBC 8.7 10^3/uL (5.0-10.0)
[2024-09-11 12:12] LABS: ALBUMIN 3.6 g/dL (3.4-5.0); BILIRUBIN TOTAL 1.1 mg/dL (0.2-1.0); C-REACTIVE PROTEIN 3.42 ng/dL (<=0.50); CALCIUM 10.6 mg/dL (8.5-10.1); CREATININE 1.62 mg/dL (0.55-1.02); EST CRCL DRUG DOSING (CG) 19.8 mL/min; MAGNESIUM 1.6 mg/dL (1.8-2.4); PROTEIN TOTAL,TP 7.1 g/dL (6.4-8.2)
[2024-09-11] MEDS: Ondansetron 4 MG/2 ML SDV IVPUSH ONE (12:14)
[2024-09-11] MEDS: Ketorolac 30 MG/ML SDV IVPUSH ONE (12:14)
[2024-09-11 12:15] LABS: LACTIC ACID 1.6 mmol/L (0.4-2.0)
[2024-09-11 12:15] LABS: APPEARANCE,URINE CLEAR (CLEAR); BILIRUBIN,URINE NEGATIVE (NEGATIVE); COLOR,URINE YELLOW (YELLOW); GLUCOSE,URINE NEGATIVE (NEGATIVE); KETONES,URINE NEGATIVE (NEGATIVE); LEUKOCYTE ESTERASE,URINE NEGATIVE (NEGATIVE); NITRITE,URINE NEGATIVE (NEGATIVE); OCCULT BLOOD,URINE NEGATIVE (NEGATIVE); PROTEIN,URINE NEGATIVE (NEGATIVE); UROBILINOGEN,URINE 0.2 mg/dL (0.2-1.0)
[2024-09-11] MEDS: Sodium Chloride 0.9% 1,000 ML IV ONE (12:34)
[2024-09-11] MEDS ORDERED: Acetaminophen 325 MG Tab PO PRN (14:19)
[2024-09-11] MEDS ORDERED: Docusate Sodium 100 MG Cap PO PRN (14:19)
[2024-09-11] MEDS: Potassium Chloride 10 MEQ Tab.ER PO ONE (15:13)
[2024-09-11] MEDS: Magnesium Sulfate/Water Premix 2 GM in Premix Bag 1 BAG IV ONE (15:13)
[2024-09-11] MEDS: Lactulose Soln 10 GM/15 ML 30 ML UD Cup PO ONE (15:13)
[2024-09-11] MEDS: Sodium Chloride 0.9% 1,000 ML IV SCH (15:17)
[2024-09-11] MEDS: Heparin Sodium 5,000 Units/ML Vial SUBCUT SCH (21:35)
[2024-09-12 05:26] LABS: BASOPHILS PERCENT AUTO 0.5 % (0.0-1.0); EOSINOPHILS PERCENT AUTO 3.8 % (1.0-3.0); HEMATOCRIT 29.5 % (37.0-47.0); HEMOGLOBIN 9.5 g/dL (12.0-16.0); LYMPHOCYTES PERCENT AUTO 26.9 % (20.5-50.1); MEAN CORPUSCULAR HEMOGLOBIN 28.4 pg (27.0-34.0); MEAN CORPUSCULAR HGB CONC 32.2 g/dL (33.0-35.0); MEAN CORPUSCULAR VOLUME 88.3 fL (80-100); MONOCYTES PERCENT AUTO 7.8 % (2-8); PLATELET COUNT,PLT 159 10^3/uL (150-450); RED BLOOD CELL COUNT 3.34 10^6/uL (4.2-5.4); WHITE BLOOD CELL COUNT,WBC 8.3 10^3/uL (5.0-10.0)
[2024-09-12 05:43] LABS: ANION GAP 15.5 mEq/L (7-13); CALCIUM 9.1 mg/dL (8.5-10.1); CREATININE 1.19 mg/dL (0.55-1.02); EST CRCL DRUG DOSING (CG) 29.21 mL/min; POTASSIUM,K 3.5 mmol/L (3.5-5.1)
[2024-09-12] MEDS: Ondansetron 4 MG/2 ML SDV IVPUSH PRN (09:37)
[2024-09-12 12:11] VITALS: BP 136/62; PULSE 76
== END 2024-09-12 15:00 | disposition home or self-care (01) ==
LOC: DL.ED 11:19 → DL.MS 13:31
PROVIDERS: ADMIT Internal Medicine; ATTEND Internal Medicine
DX: N17.9 Acute kidney failure, unspecified (principal); I10 Essential (primary) hypertension; E78.00 Pure hypercholesterolemia, unspecified; K21.9 Gastro-esophageal reflux disease without esophagitis; E03.9 Hypothyroidism, unspecified; Z79.899 Other long term (current) drug therapy
CPT/HCPCS: 36415; 74176; 80048; 80053; 81003; 82140; 83605; 83690; 83735; 85025; 86140; 87428; 96361; 96374; 96375; 97161; 97165; 99222; 99239; 99285; A9270; J1644; J1885; J2405; J3475; J7030; 96365; 96366; 96372; 96376; G0378

== ENCOUNTER 2024-12-10 05:36 | Day surgery (SDC) | payer MEDICARE, OTHER ==
[2024-12-10] MEDS: Sodium Chloride 0.9% 500 ML IV SCH (06:01)
[2024-12-10] MEDS ORDERED: fentaNYL 100 MCG/2 ML SDV ONE (06:13)
[2024-12-10] MEDS ORDERED: Midazolam 1 MG/ML 2 ML SDV ONE (06:13)
[2024-12-10] MEDS ORDERED: Midazolam 1 MG/ML 2 ML SDV IV ONE (06:13)
[2024-12-10] MEDS ORDERED: fentaNYL 100 MCG/2 ML SDV IV ONE (06:13)
[2024-12-10] MEDS: fentaNYL 100 MCG/2 ML SDV IV ONE (06:25)
[2024-12-10] MEDS: Midazolam 1 MG/ML 2 ML SDV IV ONE (06:26)
[2024-12-10 08:03] VITALS: BP 125/59; PULSE 85
== END 2024-12-10 08:25 | disposition home or self-care (01) ==
LOC: DL.ENDO 05:36
PROVIDERS: ATTEND Internal Medicine Gastroenterology
DX: K31.89 Other diseases of stomach and duodenum (principal); K76.9 Liver disease, unspecified
CPT/HCPCS: 43239; J2250; J3010; J7040; 88305

== ENCOUNTER 2025-01-03 13:07 | Emergency (ER) | payer MEDICARE, OTHER ==
[2025-01-03] MEDS ORDERED: Sodium Chloride 0.9% 10 ML Syringe FLUSH PRN (13:22)
[2025-01-03 13:36] LABS: BASOPHILS PERCENT AUTO 0.6 % (0.0-1.0); EOSINOPHILS PERCENT AUTO 5.6 % (1.0-3.0); HEMATOCRIT 28.3 % (37.0-47.0); HEMOGLOBIN 8.4 g/dL (12.0-16.0); LYMPHOCYTES PERCENT AUTO 22.5 % (20.5-50.1); MEAN CORPUSCULAR HEMOGLOBIN 25.4 pg (27.0-34.0); MEAN CORPUSCULAR HGB CONC 29.7 g/dL (33.0-35.0); MEAN CORPUSCULAR VOLUME 85.5 fL (80-100); NEUTROPHILS PERCENT AUTO 62.3 % (42.2-75.2); PLATELET COUNT,PLT 210 10^3/uL (150-450); RED BLOOD CELL COUNT 3.31 10^6/uL (4.2-5.4); WHITE BLOOD CELL COUNT,WBC 8.9 10^3/uL (5.0-10.0)
[2025-01-03 13:58] LABS: ALANINE AMINOTRANSFERASE,ALT 52 U/L (14-59); ALBUMIN 3.1 g/dL (3.4-5.0); ALKALINE PHOSPHATASE 124 U/L (46-116); ANION GAP 17.5 mEq/L (7-13); ASPARTATE AMNIOTRANSFERASE,AST 90 U/L (15-37); BILIRUBIN TOTAL 0.9 mg/dL (0.2-1.0); BLOOD UREA NITROGEN,BUN 16 mg/dL (7-18); BUN/CREATININE RATIO 12.9 (No establ ref range); C-REACTIVE PROTEIN 2.65 ng/dL (<=0.50); CARBON DIOXIDE,CO2 22 mmol/L (21-32); CHLORIDE,CL 107 mmol/L (98-107); CREATININE 1.24 mg/dL (0.55-1.02); GLUCOSE RANDOM 172 mg/dL (70-99); MAGNESIUM 1.8 mg/dL (1.8-2.4); POTASSIUM,K 3.5 mmol/L (3.5-5.1); PROTEIN TOTAL,TP 6.9 g/dL (6.4-8.2); SODIUM,NA 143 mmol/L (136-145)
[2025-01-03 13:59] LABS: A/G RATIO 0.82; ESTIMATED GFR 45 mL/min (>=60)
[2025-01-03 14:02] LABS: INR 1.2 (0.9-1.2); PROTHROMBIN TIME 12.3 SEC (9.0-12.0)
[2025-01-03 14:18] LABS: PERCENT FE SATURATION 6.4 % (20.0-50.0)
[2025-01-03 14:20] LABS: LACTIC ACID 4.1 mmol/L (0.4-2.0)
[2025-01-03] MEDS: ferumoxytoL 1,020 MG in Sodium Chloride 0.9% 100 ML IV ONE (15:54)
[2025-01-03 16:13] VITALS: BP 155/62; PULSE 87
== END 2025-01-03 17:03 | disposition home or self-care (01) ==
LOC: DL.ED 13:07
DX: K74.60 Unspecified cirrhosis of liver (principal); R18.8 Other ascites; D50.9 Iron deficiency anemia, unspecified; I10 Essential (primary) hypertension; E78.00 Pure hypercholesterolemia, unspecified; J45.909 Unspecified asthma, uncomplicated; K21.9 Gastro-esophageal reflux disease without esophagitis; E03.9 Hypothyroidism, unspecified; Z96.649 Presence of unspecified artificial hip joint; Z88.8 Allergy status to other drugs, medicaments and biological substances; Z79.890 Hormone replacement therapy; Z79.899 Other long term (current) drug therapy
CPT/HCPCS: 36415; 80053; 82728; 83540; 83550; 83605; 83735; 85025; 85610; 86140; 96365; 99284; Q0138; 99283

== ENCOUNTER 2025-01-06 15:36 | Emergency (ER) | payer MEDICARE, OTHER ==
[2025-01-06 18:04] LABS: BASOPHILS PERCENT AUTO 0.7 % (0.0-1.0); EOSINOPHILS PERCENT AUTO 5.9 % (1.0-3.0); HEMATOCRIT 30.8 % (37.0-47.0); HEMOGLOBIN 9.4 g/dL (12.0-16.0); LYMPHOCYTES PERCENT AUTO 23.2 % (20.5-50.1); MEAN CORPUSCULAR HGB CONC 30.5 g/dL (33.0-35.0); MEAN CORPUSCULAR VOLUME 85.3 fL (80-100); MONOCYTES PERCENT AUTO 7.5 % (2-8); NEUTROPHILS PERCENT AUTO 62.7 % (42.2-75.2); PLATELET COUNT,PLT 218 10^3/uL (150-450); RED BLOOD CELL COUNT 3.61 10^6/uL (4.2-5.4); WHITE BLOOD CELL COUNT,WBC 10.9 10^3/uL (5.0-10.0)
[2025-01-06 18:26] LABS: A/G RATIO 0.79; ALANINE AMINOTRANSFERASE,ALT 60 U/L (14-59); ALBUMIN 3.1 g/dL (3.4-5.0); ALKALINE PHOSPHATASE 120 U/L (46-116); ANION GAP 17.6 mEq/L (7-13); ASPARTATE AMNIOTRANSFERASE,AST 118 U/L (15-37); BLOOD UREA NITROGEN,BUN 16 mg/dL (7-18); BUN/CREATININE RATIO 15.2 (No establ ref range); CALCIUM 9.3 mg/dL (8.5-10.1); CARBON DIOXIDE,CO2 23 mmol/L (21-32); CHLORIDE,CL 106 mmol/L (98-107); CREATININE 1.05 mg/dL (0.55-1.02); ESTIMATED GFR 54 mL/min (>=60); GLUCOSE RANDOM 96 mg/dL (70-99); MAGNESIUM 1.9 mg/dL (1.8-2.4); POTASSIUM,K 3.6 mmol/L (3.5-5.1); SODIUM,NA 143 mmol/L (136-145)
[2025-01-06 18:29] LABS: LACTIC ACID 1.1 mmol/L (0.4-2.0)
[2025-01-06 18:51] LABS: INR 1.2 (0.9-1.2); PROTHROMBIN TIME 12.2 SEC (9.0-12.0); PTT,PARTIAL THROMBOPLSTIN TIME 26.7 SEC (22.0-34.0)
[2025-01-06] MEDS: Spironolactone 25 MG Tab PO ONE (21:14)
[2025-01-06] MEDS: Furosemide 20 MG Tab PO ONE (21:14)
[2025-01-06 23:37] VITALS: BP 146/64; PULSE 88
== END 2025-01-06 21:30 ==
LOC: DL.ED 15:36
DX: R18.8 Other ascites (principal); I10 Essential (primary) hypertension; K21.9 Gastro-esophageal reflux disease without esophagitis; E03.9 Hypothyroidism, unspecified; Z90.49 Acquired absence of other specified parts of digestive tract; Z79.890 Hormone replacement therapy; Z79.899 Other long term (current) drug therapy; Z88.8 Allergy status to other drugs, medicaments and biological substances
CPT/HCPCS: 36415; 80053; 83605; 83735; 85025; 85610; 85730; 99284; A9270

== ENCOUNTER 2025-01-14 10:32 | Inpatient (IN) | payer MEDICARE, OTHER ==
[2025-01-14 11:29] LABS: BASOPHILS PERCENT AUTO 0.5 % (0.0-1.0); EOSINOPHILS PERCENT AUTO 2.4 % (1.0-3.0); HEMATOCRIT 31.8 % (37.0-47.0); HEMOGLOBIN 10.1 g/dL (12.0-16.0); LYMPHOCYTES PERCENT AUTO 15.1 % (20.5-50.1); MEAN CORPUSCULAR HEMOGLOBIN 27.5 pg (27.0-34.0); MEAN CORPUSCULAR HGB CONC 31.8 g/dL (33.0-35.0); MEAN CORPUSCULAR VOLUME 86.6 fL (80-100); MONOCYTES PERCENT AUTO 6.8 % (2-8); NEUTROPHILS PERCENT AUTO 75.2 % (42.2-75.2); PLATELET COUNT,PLT 169 10^3/uL (150-450); RED BLOOD CELL COUNT 3.67 10^6/uL (4.2-5.4); WHITE BLOOD CELL COUNT,WBC 7.6 10^3/uL (5.0-10.0)
[2025-01-14 11:52] LABS: INR 1.2 (0.9-1.2); PROTHROMBIN TIME 12.6 SEC (9.0-12.0)
[2025-01-14 11:54] LABS: ALBUMIN 3.2 g/dL (3.4-5.0); ANION GAP 12.2 mEq/L (7-13); BILIRUBIN TOTAL 1.8 mg/dL (0.2-1.0); BUN/CREATININE RATIO 13.4 (No establ ref range); CREATININE 0.97 mg/dL (0.55-1.02); EST CRCL DRUG DOSING (CG) 36.94 mL/min; MAGNESIUM 1.6 mg/dL (1.8-2.4); POTASSIUM,K 3.2 mmol/L (3.5-5.1); PROTEIN TOTAL,TP 6.9 g/dL (6.4-8.2)
[2025-01-14 11:56] LABS: A/G RATIO 0.86
[2025-01-14] MEDS: Magnesium Sulf/Wat 2 GM/50 mL 2 GM in Premix Bag 1 BAG IV ONE ×2 (12:28→20:19)
[2025-01-14] MEDS ORDERED: Albuterol 0.083% 2.5 MG/3 ML Neb Soln NEB PRN (13:39)
[2025-01-14] MEDS ORDERED: Acetaminophen 325 MG Tab PO PRN (13:39)
[2025-01-14] MEDS ORDERED: Naloxone 2 MG/2 ML Syringe IVPUSH PRN (13:39)
[2025-01-14] MEDS ORDERED: Sodium Chloride 0.65% Nasal Spray 45 ML Bottle NASBOTH PRN (14:41)
[2025-01-14] MEDS: cefTRIAXone 1 GM Vial IVPUSH ONE (15:08)
[2025-01-14] MEDS: Albumin Human 25 GM in Premix Bag 1 BAG IV SCH (15:08)
[2025-01-14] MEDS: Phytonadione 10 MG in Sodium Chloride 0.9% 50 ML IV ONE (15:09)
[2025-01-14] MEDS: Potassium Chloride 10 MEQ Tab.ER PO ONE (16:37)
[2025-01-14] MEDS: Potassium Chloride 10 MEQ Tab.ER PO SCH (20:13)
[2025-01-14] MEDS: Lactulose Soln 10 GM/15 ML 30 ML UD Cup PO SCH (20:13)
[2025-01-14] MEDS: Melatonin 3 MG Tab PO PRN (20:13)
[2025-01-14] MEDS: Sodium Chloride 0.9% 10 ML Syringe FLUSH PRN (20:19)
[2025-01-14] MEDS: traMADol 50 MG Tab PO PRN (23:04)
[2025-01-15] MEDS: HYDROmorphone 0.5 MG/0.5 ML Syringe IVPUSH PRN (00:37)
[2025-01-15] MEDS: Levothyroxine 75 MCG Tab PO SCH (05:20)
[2025-01-15 06:27] LABS: BASOPHILS PERCENT AUTO 0.4 % (0.0-1.0); EOSINOPHILS PERCENT AUTO 6.9 % (1.0-3.0); HEMATOCRIT 25.7 % (37.0-47.0); HEMOGLOBIN 8.1 g/dL (12.0-16.0); LYMPHOCYTES PERCENT AUTO 21.5 % (20.5-50.1); MEAN CORPUSCULAR HEMOGLOBIN 27.6 pg (27.0-34.0); MEAN CORPUSCULAR HGB CONC 31.5 g/dL (33.0-35.0); MEAN CORPUSCULAR VOLUME 87.7 fL (80-100); NEUTROPHILS PERCENT AUTO 62.2 % (42.2-75.2); PLATELET COUNT,PLT 128 10^3/uL (150-450); RED BLOOD CELL COUNT 2.93 10^6/uL (4.2-5.4); WHITE BLOOD CELL COUNT,WBC 7.1 10^3/uL (5.0-10.0)
[2025-01-15 06:46] LABS: INR 1.3 (0.9-1.2); PROTHROMBIN TIME 12.9 SEC (9.0-12.0)
[2025-01-15 06:55] LABS: A/G RATIO 1.3; ALBUMIN 3.6 g/dL (3.4-5.0); ANION GAP 14.9 mEq/L (7-13); BILIRUBIN TOTAL 1.7 mg/dL (0.2-1.0); BUN/CREATININE RATIO 12.5 (No establ ref range); CALCIUM 8.3 mg/dL (8.5-10.1); CREATININE 0.96 mg/dL (0.55-1.02); EST CRCL DRUG DOSING (CG) 37.32 mL/min; MAGNESIUM 2.1 mg/dL (1.8-2.4); POTASSIUM,K 3.9 mmol/L (3.5-5.1); PROTEIN TOTAL,TP 6.3 g/dL (6.4-8.2)
[2025-01-15] MEDS ORDERED: Metoprolol Tartrate 5 MG/5 ML SDV IVPUSH PRN (08:27)
[2025-01-15] MEDS ORDERED: Furosemide 20 MG Tab PO SCH (09:00)
[2025-01-15] MEDS: FLUoxetine 10 MG Cap PO SCH (09:24)
[2025-01-15] MEDS: Spironolactone 25 MG Tab PO SCH (09:24)
[2025-01-15] MEDS: Furosemide 40 MG/4 ML VIAL IVPUSH SCH (09:28)
[2025-01-15] MEDS: cefTRIAXone 1 GM Vial IVPUSH SCH (09:34)
[2025-01-15] MEDS: Phytonadione 10 MG in Sodium Chloride 0.9% 50 ML IV ONE (10:28)
[2025-01-15] MEDS: Multivitamins with Iron/Calcium/Folic Acid/Minerals Tab PO SCH (20:23)
[2025-01-15] MEDS: Thiamine 100 MG Tab PO SCH (20:23)
[2025-01-15] MEDS: Folic Acid 1 MG Tab PO SCH (20:24)
[2025-01-15] MEDS: hydrALAZINE 20 MG/ML SDV IVPUSH PRN (21:16)
[2025-01-16 06:28] LABS: BASOPHILS PERCENT AUTO 0.4 % (0.0-1.0); EOSINOPHILS PERCENT AUTO 4.8 % (1.0-3.0); HEMATOCRIT 27.5 % (37.0-47.0); HEMOGLOBIN 8.8 g/dL (12.0-16.0); LYMPHOCYTES PERCENT AUTO 16.5 % (20.5-50.1); MEAN CORPUSCULAR HEMOGLOBIN 28.1 pg (27.0-34.0); MEAN CORPUSCULAR VOLUME 87.9 fL (80-100); MONOCYTES PERCENT AUTO 9.1 % (2-8); NEUTROPHILS PERCENT AUTO 69.2 % (42.2-75.2); PLATELET COUNT,PLT 126 10^3/uL (150-450); RED BLOOD CELL COUNT 3.13 10^6/uL (4.2-5.4)
[2025-01-16 06:43] LABS: INR 1.2 (0.9-1.2); PROTHROMBIN TIME 12.8 SEC (9.0-12.0)
[2025-01-16 06:45] LABS: A/G RATIO 1.4; ALBUMIN 3.7 g/dL (3.4-5.0); ANION GAP 15.2 mEq/L (7-13); BILIRUBIN TOTAL 2.1 mg/dL (0.2-1.0); BUN/CREATININE RATIO 13.2 (No establ ref range); CALCIUM 8.8 mg/dL (8.5-10.1); CREATININE 0.91 mg/dL (0.55-1.02); EST CRCL DRUG DOSING (CG) 37.4 mL/min; MAGNESIUM 1.8 mg/dL (1.8-2.4); POTASSIUM,K 4.2 mmol/L (3.5-5.1); PROTEIN TOTAL,TP 6.4 g/dL (6.4-8.2)
[2025-01-16] MEDS: Lactulose Soln 10 GM/15 ML 30 ML UD Cup PO SCH (10:24)
[2025-01-16] MEDS: Phytonadione 5 MG Tab PO SCH (10:25)
[2025-01-16 11:29] LABS: APPEARANCE,URINE CLEAR (CLEAR); BILIRUBIN,URINE NEGATIVE (NEGATIVE); COLOR,URINE YELLOW (YELLOW); GLUCOSE,URINE NEGATIVE (NEGATIVE); KETONES,URINE NEGATIVE (NEGATIVE); LEUKOCYTE ESTERASE,URINE NEGATIVE (NEGATIVE); NITRITE,URINE NEGATIVE (NEGATIVE); OCCULT BLOOD,URINE NEGATIVE (NEGATIVE); PH,URINE 6.5 (5.0-9.0); PROTEIN,URINE TRACE (NEGATIVE)
[2025-01-16 11:42] LABS: BACTERIA,URINE FEW /HPF (0-FEW/HPF); EPITHELIAL CELLS,URINE FEW /HPF (NOT SEEN); RBC,URINE 0-5 /HPF (0-5); WBC,URINE 0-5 /HPF (0-5/HPF)
[2025-01-16] MEDS ORDERED: Bisacodyl 10 MG Supp RECTAL PRN (16:26)
[2025-01-16] MEDS: Magnesium Hydroxide 400 MG/5 ML Susp 30 ML Cup PO PRN (21:43)
[2025-01-17 06:29] LABS: BASOPHILS PERCENT AUTO 0.4 % (0.0-1.0); EOSINOPHILS PERCENT AUTO 7.4 % (1.0-3.0); HEMATOCRIT 27.8 % (37.0-47.0); HEMOGLOBIN 8.8 g/dL (12.0-16.0); LYMPHOCYTES PERCENT AUTO 22.8 % (20.5-50.1); MEAN CORPUSCULAR HGB CONC 31.7 g/dL (33.0-35.0); MEAN CORPUSCULAR VOLUME 88.5 fL (80-100); MONOCYTES PERCENT AUTO 10.8 % (2-8); NEUTROPHILS PERCENT AUTO 58.6 % (42.2-75.2); PLATELET COUNT,PLT 111 10^3/uL (150-450); RED BLOOD CELL COUNT 3.14 10^6/uL (4.2-5.4); WHITE BLOOD CELL COUNT,WBC 7.4 10^3/uL (5.0-10.0)
[2025-01-17 07:18] LABS: A/G RATIO 1.2; ALBUMIN 3.5 g/dL (3.4-5.0); BILIRUBIN TOTAL 1.7 mg/dL (0.2-1.0); BUN/CREATININE RATIO 11.8 (No establ ref range); CREATININE 0.93 mg/dL (0.55-1.02); EST CRCL DRUG DOSING (CG) 36.2 mL/min; MAGNESIUM 1.8 mg/dL (1.8-2.4); PROTEIN TOTAL,TP 6.4 g/dL (6.4-8.2)
[2025-01-18 06:32] LABS: BASOPHILS PERCENT AUTO 0.7 % (0.0-1.0); EOSINOPHILS PERCENT AUTO 9.7 % (1.0-3.0); HEMATOCRIT 29.2 % (37.0-47.0); HEMOGLOBIN 9.3 g/dL (12.0-16.0); MEAN CORPUSCULAR HEMOGLOBIN 28.1 pg (27.0-34.0); MEAN CORPUSCULAR HGB CONC 31.8 g/dL (33.0-35.0); MEAN CORPUSCULAR VOLUME 88.2 fL (80-100); MONOCYTES PERCENT AUTO 11.4 % (2-8); NEUTROPHILS PERCENT AUTO 58.2 % (42.2-75.2); PLATELET COUNT,PLT 125 10^3/uL (150-450); RED BLOOD CELL COUNT 3.31 10^6/uL (4.2-5.4); WHITE BLOOD CELL COUNT,WBC 7.6 10^3/uL (5.0-10.0)
[2025-01-18 07:00] LABS: A/G RATIO 1.2; ALBUMIN 3.5 g/dL (3.4-5.0); BILIRUBIN TOTAL 1.1 mg/dL (0.2-1.0); BUN/CREATININE RATIO 13.9 (No establ ref range); CALCIUM 9.4 mg/dL (8.5-10.1); CREATININE 1.01 mg/dL (0.55-1.02); EST CRCL DRUG DOSING (CG) 33.33 mL/min; PROTEIN TOTAL,TP 6.5 g/dL (6.4-8.2)
[2025-01-19] MEDS: Furosemide 20 MG Tab PO SCH (10:15)
[2025-01-19] MEDS: Ondansetron 4 MG/2 ML SDV IVPUSH PRN (11:28)
[2025-01-19] MEDS: Simethicone 80 MG Tab.Chew PO PRN (19:37)
[2025-01-20] MEDS: Donepezil 10 MG Tab PO SCH (01:41)
[2025-01-20 06:48] LABS: BASOPHILS PERCENT AUTO 0.5 % (0.0-1.0); EOSINOPHILS PERCENT AUTO 6.9 % (1.0-3.0); HEMATOCRIT 30.3 % (37.0-47.0); HEMOGLOBIN 9.4 g/dL (12.0-16.0); MEAN CORPUSCULAR HEMOGLOBIN 27.7 pg (27.0-34.0); MEAN CORPUSCULAR VOLUME 89.4 fL (80-100); MONOCYTES PERCENT AUTO 11.4 % (2-8); NEUTROPHILS PERCENT AUTO 62.2 % (42.2-75.2); PLATELET COUNT,PLT 147 10^3/uL (150-450); RED BLOOD CELL COUNT 3.39 10^6/uL (4.2-5.4); WHITE BLOOD CELL COUNT,WBC 8.9 10^3/uL (5.0-10.0)
[2025-01-20 07:16] LABS: A/G RATIO 1.1; ALBUMIN 3.6 g/dL (3.4-5.0); ANION GAP 13.4 mEq/L (7-13); BILIRUBIN TOTAL 1.3 mg/dL (0.2-1.0); BUN/CREATININE RATIO 15.1 (No establ ref range); CALCIUM 9.5 mg/dL (8.5-10.1); CREATININE 1.19 mg/dL (0.55-1.02); EST CRCL DRUG DOSING (CG) 28.29 mL/min; POTASSIUM,K 5.4 mmol/L (3.5-5.1); PROTEIN TOTAL,TP 6.8 g/dL (6.4-8.2)
[2025-01-20] MEDS: Lactulose Soln 10 GM/15 ML 30 ML UD Cup PO SCH (20:59)
[2025-01-20] MEDS: Metoclopramide 10 MG/2 ML SDV IVPUSH PRN (23:20)
[2025-01-22] MEDS: traMADol 50 MG Tab PO SCH (20:44)
[2025-01-22] MEDS: Donepezil 10 MG Tab PO SCH (20:45)
[2025-01-22] MEDS: Ondansetron 4 MG Tab.DIS PO SCH (20:45)
[2025-01-23 06:42] LABS: ALBUMIN 3.5 g/dL (3.4-5.0); ANION GAP 11.4 mEq/L (7-13); BILIRUBIN TOTAL 1.7 mg/dL (0.2-1.0); BUN/CREATININE RATIO 21.7 (No establ ref range); CALCIUM 9.7 mg/dL (8.5-10.1); CREATININE 0.92 mg/dL (0.55-1.02); EST CRCL DRUG DOSING (CG) 35.4 mL/min; MAGNESIUM 1.8 mg/dL (1.8-2.4); POTASSIUM,K 4.4 mmol/L (3.5-5.1); PROTEIN TOTAL,TP 6.9 g/dL (6.4-8.2)
[2025-01-23 08:51] VITALS: BP 170/63; PULSE 76
== END 2025-01-23 09:35 | disposition other institution (70) | DRG 442 ==
LOC: DL.ED 10:32 → DL.MS 13:12
PROVIDERS: ADMIT Internal Medicine; ATTEND Internal Medicine
PROC: 0W9G3ZZ Drainage of Peritoneal Cavity, Percutaneous Approach (ICD-10-PCS; principal; 2025-01-14)
DX: K72.00 Acute and subacute hepatic failure without coma (principal); E44.0 Moderate protein-calorie malnutrition; R18.8 Other ascites; Z68.1 Body mass index [BMI] 19.9 or less, adult; Z66 Do not resuscitate; K72.10 Chronic hepatic failure without coma; H91.90 Unspecified hearing loss, unspecified ear; H54.7 Unspecified visual loss; J32.9 Chronic sinusitis, unspecified; E83.42 Hypomagnesemia; Z79.890 Hormone replacement therapy; E78.00 Pure hypercholesterolemia, unspecified; I10 Essential (primary) hypertension; J45.909 Unspecified asthma, uncomplicated; E88.09 Other disorders of plasma-protein metabolism, not elsewhere classified; R73.9 Hyperglycemia, unspecified; M81.0 Age-related osteoporosis without current pathological fracture; K59.09 Other constipation; E87.6 Hypokalemia; K21.9 Gastro-esophageal reflux disease without esophagitis; K74.60 Unspecified cirrhosis of liver; D64.9 Anemia, unspecified; M19.90 Unspecified osteoarthritis, unspecified site; F32.A Depression, unspecified; E03.9 Hypothyroidism, unspecified; Z98.49 Cataract extraction status, unspecified eye; Z98.51 Tubal ligation status; Z88.8 Allergy status to other drugs, medicaments and biological substances; Z79.899 Other long term (current) drug therapy; Z90.49 Acquired absence of other specified parts of digestive tract; Z98.890 Other specified postprocedural states; Z96.649 Presence of unspecified artificial hip joint; Z96.619 Presence of unspecified artificial shoulder joint
CPT/HCPCS: 36415; 80053; 82140; 83735; 85025; 85610; 99285 ×2; J3475; 71045; 74018; 81001; 86850; 86900; 86901; 87070; 88112; 88305; A9270-GY; J0360; J0696; J1940; J2405; J2765; J3430; J3490; P9047